=== PATIENT | female | born 2000 | race Caucasian/White ===

== ENCOUNTER 2019-03-25 10:58 | Emergency (ER) | payer SELFPAY ==
[2019-03-25 11:04] VITALS: BMI 25.7
[2019-03-25] MEDS ORDERED: FAMOTIDINE 20 MG/50 ML IVPB 20 MG/50 ML MG IVPB ONE ×2 (11:48→12:25)
[2019-03-25] MEDS ORDERED: ACETAMINOPHEN 1000 MG/100 ML VIAL (NON FORMULARY) IVPB ONE (11:48)
[2019-03-25] MEDS ORDERED: MAG HYDROX/AL HYDROX/SIMETH 30 ML UNIT-DOSE CUP PO ONE (11:48)
[2019-03-25] MEDS ORDERED: ONDANSETRON 4 MG/2 ML VIAL IVPB ONE (11:48)
[2019-03-25] MEDS ORDERED: SODIUM CHLORIDE 1,000 ML IV STA (11:48)
--- NOTE | 2019-03-25 12:04 | PDOC ---
Attending Attestation - Resident Resident Name: MonicaAnusha - ED Attending Attestation I have performed the following: I have examined & evaluated the patient, The case was reviewed & discussed with the resident, I agree w/resident's findings & plan, Exceptions are as noted - HPI HPI: 03/25/19 11:58 18 F with no PMH presents to ED with LUQ pain. Pt has had pain for 3 days now. Was evaluated here 2 days ago and had labwork that was normal. Pt was given GI cocktail and reports resolution of her pain with those meds. However, pt states the pain recurred after she went home. States it is worse with eating. She was given a prescription for pepcid, which she states does not help. Pt reports nausea and vomiting associated with the pain. Denies diarrhea. Endorses constipation. No F/C. No RUQ pain. No blood or coffee ground vomit. - Physicial Exam PE: 03/25/19 12:04 "GENERAL: Awake, alert, and fully oriented, in no acute distress. HEAD: No signs of trauma EYES: PERRLA, EOMI, sclera anicteric, conjunctiva clear ENT: Auricles normal inspection, hearing grossly normal, nares patent, oropharynx clear without exudates. Moist mucosa NECK: Nontender, no stepoffs, Normal ROM, supple, no lymphadenopathy, JVD, or masses LUNGS: Breath sounds equal, clear to auscultation bilaterally. No wheezes, and no crackles HEART: Regular rate and rhythm, normal S1 and S2, no murmurs, rubs or gallops ABDOMEN: + LUQ TTP, normoactive bowel sounds. No guarding, no rebound. No masses EXTREMITIES: Normal range of motion, no edema. No clubbing or cyanosis. No cords, erythema, or tenderness NEUROLOGICAL: Cranial nerves II through XII intact. 5/5 strength and sensation in all extremities, Normal speech, normal gait, normal cerebellar function SKIN: Warm, Dry, normal turgor, no rashes or lesions noted. - Medical Decision Making 03/25/19 12:04 18 F with epigastric and LUQ pain. SUspect gastritis vs PUD. - Labs, lipase - GI cocktail - COnsider CT imaging if pain not improved with GI meds 03/25/19 18:[address] obtained, no acute findings other than pelvic congestion syndrome Will DC with housing quality standard inspector and GI f/u Pt is well appearing, with normal vitals. Clinically stable for DC at this time. I discussed the physical exam findings, ancillary test results and final diagnoses with the patient. I answered all of the patient's questions. The patient was satisfied with the care received and felt comfortable with the discharge plan and treatment plan. The patient agrees to follow up with the primary care physician within 24-72 hours.
[2019-03-25] MEDS ORDERED: ACETAMINOPHEN INJECTION 100 ML IVPB ONE (12:24)
[2019-03-25] MEDS ORDERED: MAG HYDROX/AL HYDROX/SIMETH 30 ML UNIT-DOSE CUP ONE (12:24)
[2019-03-25] MEDS ORDERED: ONDANSETRON 4 MG/2 ML VIAL ONE (12:25)
[2019-03-25 12:31] LABS: BASO % 0.7 % (0-2.0); EOS % 4.4 % (0-4.5); HEMOGLOBIN 12.9 GM/dL (10.7-15.3); LYMPH % 20.4 % (8-40); MCH 26.3 pg (25.7-33.7); MCHC 32.2 g/dl (32.0-36.0); MEAN CELL VOLUME 81.5 fl (80-96); MONO % 8.6 % (3.8-10.2); NEUT % 65.9 % (42.8-82.8); PLATELET COUNT 264 K/MM3 (134-434); RBC 4.91 M/mm3 (3.60-5.2); RDW 13.7 % (11.6-15.6); WHITE BLOOD COUNT 6.4 K/mm3 (4.0-10.0)
[2019-03-25 12:55] LABS: URINE APPEARANCE CLOUDY; URINE BILIRUBIN NEGATIVE (NEGATIVE); URINE COLOR YELLOW; URINE GLUCOSE (UA) NEGATIVE (NEGATIVE); URINE KETONE 4+ (NEGATIVE); URINE LEUK ESTERASE NEGATIVE (NEGATIVE); URINE NITRITE NEGATIVE (NEGATIVE); URINE PROTEIN NEGATIVE (NEGATIVE)
[2019-03-25 13:04] LABS: BILIRUBIN,TOTAL 0.4 mg/dL (0.2-1); BLOOD UREA NITROGEN 5.4 mg/dL (7-18); CALCIUM 9.2 mg/dL (8.5-10.1); CREATININE 0.7 mg/dL (0.55-1.3); POTASSIUM 3.7 mmol/L (3.5-5.1); TOT PROT 7.6 g/dl (6.4-8.2)
--- NOTE | 2019-03-25 13:37 | PDOC ---
History of Present Illness - General Chief Complaint: Pain, Acute Stated Complaint: ABD PAIN Time Seen by Provider: 03/25/19 11:07 History Source: Patient Exam Limitations: No Limitations - History of Present Illness Initial Comments: 03/25/19 13:37 18y F presenting for abdominal pain. was here a few days ago. Past History - Past Medical History Allergies/Adverse Reactions: Allergies Allergy/AdvReac Type Severity Reaction Status Date / Time pineapple Allergy Verified 03/25/19 11:04 Home Medications: Ambulatory Orders Famotidine [Pepcid -] 20 mg PO DAILY #14 tablet 03/24/19 Ondansetron [Zofran -] 4 mg PO BID PRN #10 tablet 03/25/19 COPD: No Other medical history: anxiety - Immunization History Immunization Up to Date: No - Psycho Social/Smoking Cessation Hx Smoking History: Never smoked Have you smoked in the past 12 months: No Information on smoking cessation initiated: No Hx Alcohol Use: No Drug/Substance Use Hx: No *Physical Exam - Vital Signs Last Vital Signs Temp Pulse Resp BP Pulse Ox 98.5 F 75 18 116/69 99 03/25/19 11:01 03/25/19 11:01 03/25/19 11:01 03/25/19 11:01 03/25/19 11:29 ED Treatment Course - LABORATORY CBC & Chemistry Diagram: 03/25/19 12:24 03/25/19 12:24 - ADDITIONAL ORDERS Additional order review: Laboratory Results 03/25/19 03/25/19 03/25/19 12:24 12:20 12:20 Sodium 140 Potassium 3.7 Chloride 107 Carbon Dioxide 27 Anion Gap 5 L BUN 5.4 L Creatinine 0.7 Est GFR (CKD-EPI)AfAm 145.58 Est GFR (CKD-EPI)NonAf 125.60 Random Glucose 91 Calcium 9.2 Total Bilirubin 0.4 AST 29 ALT 36 Alkaline Phosphatase 106 Total Protein 7.6 Albumin 4.0 Urine Color Yellow Urine Appearance Cloudy Urine pH 6.0 Ur Specific [place] 1.024 Urine Protein Negative Urine Glucose (UA) Negative Urine Ketones 4+ H Urine Blood Negative Urine Nitrite Negative Urine Bilirubin Negative Urine Urobilinogen 1.0 Ur Leukocyte Esterase Negative Urine HCG, Qual Negative 03/25/19 12:24 RBC 4.91 MCV 81.5 MCHC 32.2 RDW 13.7 MPV 9.0 Neutrophils % 65.9 Lymphocytes % 20.4 D Monocytes % 8.6 Eosinophils % 4.4 Basophils % 0.7 - RADIOLOGY Radiology Studies Ordered: Category Date Time Status ABDOMEN & PELVIS CT WITH CONTR [CT] Stat CT Scan 03/25/19 13:36 Ordered - Medications Given in the ED: ED Medications Discontinued Medications Generic Name Dose Route Start Last Admin Trade Name Freq PRN Reason Stop Dose Admin Acetaminophen 1,000 mg 03/25/19 11:48 03/25/19 12:39 Ofirmev Injection - IVPB 03/25/19 11:49 1,000 mg ONCE ONE Administration Al Hydroxide/Mg Hydroxide 30 ml 03/25/19 11:48 03/25/19 12:39 Mylanta Oral Suspension - PO 03/25/19 11:49 30 ml ONCE ONE Administration Famotidine/Sodium Chloride 20 mg in 50 mls @ 100 mls/hr 03/25/19 11:48 12:39 Pepcid 20 Mg Premixed Ivpb - IVPB 03/25/19 12:17 100 mls/hr ONCE ONE Administration Sodium Chloride 1,000 mls @ 1,000 mls/hr 03/25/19 11:48 03/25/19 12:39 Normal Saline - IV 03/25/19 12:47 1,000 mls/hr ASDIR STA Administration Ondansetron HCl 4 mg 03/25/19 11:48 03/25/19 12:39 Zofran Injection IVPB 03/25/19 11:49 4 mg ONCE ONE Administration Medical Decision Making - Medical Decision Making 03/25/19 18:06 toleratring po Discharge - Discharge Information Problems reviewed: Yes Clinical Impression/Diagnosis: Pelvic congestion syndrome Abdominal pain Qualifiers: Abdominal location: upper abdomen, unspecified Qualified Code(s): R10.10 - Upper abdominal pain, unspecified Condition: Improved Disposition: HOME - Admission No - Additional Discharge Information Prescriptions: Ondansetron [Zofran -] 4 mg PO BID PRN #10 tablet PRN Reason: Nausea - Follow up/Referral Referrals: Maribel Boyd DO [Staff Physician] - Albert Santos MD [Staff Physician] - Robert Bey DO [Staff Physician] - Blanca Gannon MD [Staff Physician] - Ysabel Ojeda MD [Staff Physician] - Sy Franicsco MD [Staff Physician] - Lisha Velazquez MD [Staff Physician] - Aman Kumar MD [Staff Physician] - - Patient Discharge Instructions Patient Printed Discharge Instructions: DI for Gastritis, DI for Abdominal Pain -Adult Additional Instructions: You most likely have gastritis. You also may have pelvic congestion syndrome; this is not anything urgent or dangerous. Take the Pepcid as directed and take the Zofran as needed for nausea (follow prescription directions). I recommend refraining from fried, acidic and fatty foods for the time being. Keep yourself well hydrated. Referrals to GI and Site Worker have been provided. Come back to the emergency room if pain worsens, you are continuously throwing up or if any new or concerning symptom develops,. Thank you - Post Discharge Activity
[2019-03-25] MEDS ORDERED: KETOROLAC TROMETHAMINE 30 MG/1 ML VIAL IVPUSH ONE (16:19)
[2019-03-25] MEDS ORDERED: KETOROLAC TROMETHAMINE 15 MG/ML VIAL ONE (16:20)
[2019-03-25 17:44] VITALS: BP 137/71; PULSE 76; TEMP 97.3
== END 2019-03-25 18:25 | disposition home or self-care (01) ==
LOC: JER 10:58
PROC: 3E033GC Introduction of Other Therapeutic Substance into Peripheral Vein, Percutaneous Approach (ICD-10-PCS; principal; 2019-03-25)
PROC: 3E033GC Introduction of Other Therapeutic Substance into Peripheral Vein, Percutaneous Approach (ICD-10-PCS; 2019-03-25)
PROC: 3E0333Z Introduction of Anti-inflammatory into Peripheral Vein, Percutaneous Approach (ICD-10-PCS; 2019-03-25)
PROC: 3E033NZ Introduction of Analgesics, Hypnotics, Sedatives into Peripheral Vein, Percutaneous Approach (ICD-10-PCS; 2019-03-25)
DX: N94.89 Other specified conditions associated with female genital organs and menstrual cycle (principal); R10.13 Epigastric pain
CPT/HCPCS: 36415; 74177-TC; 80053; 81003; 84703; 85025; 87086; 87491; 87591; 99284-25; J0131; J7030; Q9967